=== PATIENT | female | born 1965 | race Caucasian/White ===

== ENCOUNTER → 2020-03-07 | Outpatient (CLI) | payer OTHER ==
[~2020-03-07] MED LIST: ASPIRIN 325MG325 MG PO; BACTROBAN OINT22 GM EXT; CALCIUM CARBON600 MG PO; CELEBREX200 MG PO; CEPHALEXIN500 M1 PO; CLARITIN10 MG PO; ELIQUIS2.5 MG PO; ENDOCET 7.5-321 EACH PO; EXCEDRIN EXTRA1 EACH PO; IBUPROFEN800 MG PO; LASIX20 MG PO; LEVOTHYROXINE125 MC1 PO; LEVOTHYROXINE137 MC1 PO; MOTRIN IB200 MG PO; NORVASC10 MG PO; PRILOSEC OTC20 MG PO; ULTRAM50 MG PO
[2020-03-07 13:40] LABS: HEMOGLOBIN 12.5 gm/dl (12.3-15.3); RED BLOOD COUNT 4.72 M/UL (4.00-5.10); WHITE BLOOD COUNT 6.7 K/UL (4.5-11.0)
[2020-03-07 13:57] LABS: BUN/CREATININE RATIO 28 (0-10)
== END ==
LOC: EDSTATUS 11:30 → OPSV2 11:30
PROVIDERS: Orthopaedic Surgery
DX: Z01.818 Encounter for other preprocedural examination (principal); M87.88 Other osteonecrosis, other site; I49.3 Ventricular premature depolarization
CPT/HCPCS: 71046; 80048; 81001; 85025; 85652; 86140; 87081; 93005

== ENCOUNTER → 2020-05-27 | Outpatient (CLI) | payer OTHER | LOC: ECHO 04-12 12:00 → NM 04-25 09:00 → ECHO 04-25 09:00 | DX: R94.31 Abnormal electrocardiogram [ECG] [EKG] (principal); R93.89 Abnormal findings on diagnostic imaging of other specified body structures; I10 Essential (primary) hypertension; I34.0 Nonrheumatic mitral (valve) insufficiency | CPT/HCPCS: ECHO; 93306 ==

== ENCOUNTER 2020-07-06 12:43 | Emergency (ER) | payer OTHER ==
[~2020-07-06 12:43] MED LIST changes: -BACTROBAN OINT22 GM EXT; -CEPHALEXIN500 M1 PO; -ELIQUIS2.5 MG PO; -ENDOCET 7.5-321 EACH PO; -IBUPROFEN800 MG PO; -LEVOTHYROXINE137 MC1 PO; -ULTRAM50 MG PO
[2020-07-06] MEDS ORDERED: BACTROBAN OINT22 GM EXT (14:50)
[2020-07-06] MEDS ORDERED: CEPHALEXIN500 M1 PO (14:50)
[2020-07-30] MEDS ORDERED: LEVOTHYROXINE137 MC1 PO (10:01)
[2020-07-30] MEDS ORDERED: IBUPROFEN800 MG PO (10:03)
[2020-07-30] MEDS ORDERED: ULTRAM50 MG PO (10:04)
== END 2020-07-06 15:42 | disposition home or self-care (01) ==
LOC: ER1 12:43
DX: M25.551 Pain in right hip (principal); G89.29 Other chronic pain; L03.316 Cellulitis of umbilicus
CPT/HCPCS: 73502; 96372; 99283; J2270; J2405

== ENCOUNTER → 2020-07-30 | Outpatient (CLI) | payer OTHER ==
[~2020-07-30] MED LIST changes: +BACTROBAN OINT22 GM EXT; +CEPHALEXIN500 M1 PO; +ELIQUIS2.5 MG PO; +ENDOCET 7.5-321 EACH PO; +IBUPROFEN800 MG PO; +LEVOTHYROXINE137 MC1 PO; +ULTRAM50 MG PO
[2020-07-30 10:19] LABS: HEMOGLOBIN 13.3 gm/dl (12.3-15.3); RED BLOOD COUNT 4.9 M/UL (4.00-5.10); WHITE BLOOD COUNT 7.7 K/UL (4.5-11.0)
[2020-07-30 10:42] LABS: BUN/CREATININE RATIO 28 (0-10)
== END ==
LOC: EDSTATUS 09:30 → OPSV2 09:30
PROVIDERS: Orthopaedic Surgery
DX: Z01.818 Encounter for other preprocedural examination (principal); M87.9 Osteonecrosis, unspecified
CPT/HCPCS: 36415; 71046; 80048; 81001; 85025; 85610; 85730; 87081; 93005

== ENCOUNTER → 2020-08-05 | Outpatient (CLI) | payer OTHER ==
[2020-08-05 12:43] LABS: BUN/CREATININE RATIO 36 (0-10)
== END ==
LOC: LAB 11:11
PROVIDERS: Orthopaedic Surgery
DX: Z01.812 Encounter for preprocedural laboratory examination (principal)
CPT/HCPCS: 80048; 86850; 86900; 86901

== ENCOUNTER 2020-08-06 07:45 | Inpatient (IN) | payer OTHER ==
[~2020-08-06] VITALS: Ht 162.6 cm; Wt 63.0 kg
[~2020-08-06 07:45] MED LIST changes: -ELIQUIS2.5 MG PO; -ENDOCET 7.5-321 EACH PO
[2020-08-06] MEDS ORDERED: ENDOCET 7.5-321 EACH PO (12:34)
[2020-08-06] MEDS ORDERED: ELIQUIS2.5 MG PO (12:34)
[2020-08-07 03:44] LABS: HEMOGLOBIN 8.5 gm/dl (12.3-15.3); RED BLOOD COUNT 3.21 M/UL (4.00-5.10); WHITE BLOOD COUNT 9.4 K/UL (4.5-11.0)
[2020-08-07 04:16] LABS: BUN/CREATININE RATIO 29 (0-10)
[2020-08-08 04:28] LABS: HEMOGLOBIN 7.9 gm/dl (12.3-15.3); RED BLOOD COUNT 2.97 M/UL (4.00-5.10)
[2020-08-08 04:31] LABS: WHITE BLOOD COUNT 5.9 K/UL (4.5-11.0)
[2020-08-08 04:48] LABS: BUN/CREATININE RATIO 20 (0-10)
--- NOTE | 2020-08-08 14:36 | NUR ---
INSTRUCTED ON SCRIPT FOR OUTPATIENT PHYSICAL THERAPY. KEEP FOLLOW UP APPOINTMENTS. PAIN MEDS AND BLOOD THINNER E-SCRIPTED TO [facility] IN [facility]. VERBALIZED UNDERSTANDING. KENYON ZELAYA R.N.
== END 2020-08-08 16:11 | disposition home or self-care (01) | DRG 470 ==
LOC: M/S 07:45 → ZOBSOF 07:45 → M/S 13:41
PROVIDERS: ADMIT Orthopaedic Surgery
PROC: 0SR90JA Replacement of Right Hip Joint with Synthetic Substitute, Uncemented, Open Approach (ICD-10-PCS; principal; 2020-08-06 11:00)
DX: M87.051 Idiopathic aseptic necrosis of right femur (principal); D62 Acute posthemorrhagic anemia; L03.316 Cellulitis of umbilicus; M16.7 Other unilateral secondary osteoarthritis of hip; M87.9 Osteonecrosis, unspecified; I10 Essential (primary) hypertension; E07.9 Disorder of thyroid, unspecified; M06.9 Rheumatoid arthritis, unspecified; Z20.822 Contact with and (suspected) exposure to COVID-19; E03.9 Hypothyroidism, unspecified; K21.9 Gastro-esophageal reflux disease without esophagitis; Z82.49 Family history of ischemic heart disease and other diseases of the circulatory system; Z88.6 Allergy status to analgesic agent; Z88.2 Allergy status to sulfonamides
CPT/HCPCS: 36415; 73501; 73502; 76000; 80048; 85027; 86850; 86900; 86901; 97116-GP-CQ; 97161; 97166; 97530-GP-CQ; 97535; C1713; C1776; J0171; J0690; J1100; J1170; J1885; J2001; J2250; J2370; J2405; J2704; J2710; J2795; J3010; J3370; J7120; P9045

== ENCOUNTER 2020-08-11 02:58 | Emergency (ER) | payer OTHER ==
[~2020-08-11 02:58] MED LIST changes: +ELIQUIS2.5 MG PO; +ENDOCET 7.5-321 EACH PO
[2020-08-11 04:22] LABS: HEMOGLOBIN 8.4 gm/dl (12.3-15.3); RED BLOOD COUNT 3.14 M/UL (4.00-5.10); WHITE BLOOD COUNT 7.6 K/UL (4.5-11.0)
[2020-08-11 04:54] LABS: BUN/CREATININE RATIO 34 (0-10)
== END 2020-08-11 06:00 | disposition home or self-care (01) ==
LOC: ER1 02:58
PROVIDERS: Emergency Medicine
DX: S73.004A Unspecified dislocation of right hip, initial encounter (principal); I10 Essential (primary) hypertension; Z88.2 Allergy status to sulfonamides; X50.1XXA Overexertion from prolonged static or awkward postures, initial encounter
CPT/HCPCS: 27265; 73502; 73560; 80053; 85025; 94760; 96374; 96375; 99284; J2270; J2405; J2704

== ENCOUNTER → 2021-02-27 | Outpatient (CLI) | payer OTHER ==
[~2021-02-27] MED LIST changes: +IBU800 MG PO
[2021-02-27 11:39] LABS: HEMOGLOBIN 12.4 gm/dl (12.3-15.3); RED BLOOD COUNT 4.91 M/UL (4.00-5.10); WHITE BLOOD COUNT 8.6 K/UL (4.5-11.0)
[2021-02-27 11:50] LABS: BUN/CREATININE RATIO 29 (0-10)
== END ==
LOC: OPSV2 10:00 → EDSTATUS 10:00 → OPSV2 10:25
PROVIDERS: Orthopaedic Surgery
DX: Z01.818 Encounter for other preprocedural examination (principal); M87.851 Other osteonecrosis, right femur
CPT/HCPCS: 80048; 85027; 85652; 86140; 93005

== ENCOUNTER → 2021-05-29 | Outpatient (CLI) | payer OTHER ==
[~2021-05-29] MED LIST changes: +FLONASE ALLER15.8 ML; +MULTI-VITAMIN1 EACH PO; +TYLENOL EXTRA500 MG PO
[2021-05-29 09:15] LABS: HEMOGLOBIN 11.1 gm/dl (12.3-15.3); RED BLOOD COUNT 4.49 M/UL (4.00-5.10); WHITE BLOOD COUNT 8.3 K/UL (4.5-11.0)
[2021-05-29 09:36] LABS: BUN/CREATININE RATIO 30 (0-10)
== END ==
LOC: OPSV2 05-22 10:00 → EDSTATUS 08:30 → OPSV2 08:38
PROVIDERS: Orthopaedic Surgery
DX: Z01.818 Encounter for other preprocedural examination (principal); M87.9 Osteonecrosis, unspecified; Z88.1 Allergy status to other antibiotic agents; Z88.2 Allergy status to sulfonamides; Z91.040 Latex allergy status; I10 Essential (primary) hypertension; Z87.440 Personal history of urinary (tract) infections
CPT/HCPCS: 80048; 81001; 85027; 85652; 86140; 93005

== ENCOUNTER → 2021-08-05 | Outpatient (CLI) | payer OTHER ==
[2021-08-05 09:57] LABS: HEMOGLOBIN 11.5 gm/dl (12.3-15.3); RED BLOOD COUNT 4.71 M/UL (4.00-5.10); WHITE BLOOD COUNT 8.3 K/UL (4.5-11.0)
[2021-08-05 10:15] LABS: BUN/CREATININE RATIO 29 (0-10)
== END ==
LOC: OPSV2 07-23 10:00 → EDSTATUS 07-24 12:30 → OPSV2 07-31 10:00
PROVIDERS: Orthopaedic Surgery
DX: Z01.818 Encounter for other preprocedural examination (principal); M87.9 Osteonecrosis, unspecified
CPT/HCPCS: 36415; 80048; 85027; 85652; 86140; 93005